=== PATIENT | male | born 2000 | race Hispanic/Latino ===

== ENCOUNTER 2022-11-22 13:27 | Emergency (ER) | payer OTHER ==
[2022-11-22] MEDS ORDERED: IBUPROFEN 400 MG TAB ONE (13:49)
--- NOTE | 2022-11-22 14:30 | RAD REPORT ---
EXAM DESCRIPTION: RAD - Ankle Left 3 View - 11/22/2022 2:23 pm CLINICAL HISTORY: Pain;Swelling COMPARISON: No comparisons FINDINGS: Mild soft tissue swelling laterally. Avulsion fracture is present distal most aspect of th e fibula.
--- NOTE | 2022-11-22 14:30 | RAD REPORT ---
EXAM DESCRIPTION: RAD - Foot Left 3 View - 11/22/2022 2:23 pm CLINICAL HISTORY: PAIN COMPARISON: No comparisons FINDINGS: No bone or joint abnormality.
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
[2022-11-22 18:26] VITALS: TEMP 97.4
[2022-11-22 18:27] VITALS: BP 110/65; O2SAT 100
== END 2022-11-22 18:20 | disposition home or self-care (01) ==
LOC: ER 13:27
DX: S82.65XA Nondisplaced fracture of lateral malleolus of left fibula, initial encounter for closed fracture (principal); Z88.1 Allergy status to other antibiotic agents
CPT/HCPCS: 99285